=== PATIENT | female | born 1945 | race Caucasian/White ===

== ENCOUNTER 2018-01-24 15:00 | Emergency (ER) | payer MEDICARE, MEDICAID ==
[~2018-01-24] VITALS: Ht 162.6 cm; Wt 88.9 kg
[2018-01-24] MEDS ORDERED: CEPH-570 PO (16:19)
[2018-01-24] MEDS ORDERED: ACET-868 PO (16:20)
[2018-01-24] MEDS ORDERED: LOSA100T15 PO (16:20)
[2018-01-24] MEDS ORDERED: MAGN400O6 PO (16:20)
[2018-01-24] MEDS ORDERED: LEVO200T8 PO (16:20)
[2018-01-24] MEDS ORDERED: ASPI-1169 PO (16:20)
[2018-01-24] MEDS ORDERED: GUAI100S11 PO (16:20)
[2018-01-24] MEDS ORDERED: OXYC-128 PO (16:20)
[2018-01-24] MEDS ORDERED: ACET-2605 PO (16:20)
[2018-01-24] MEDS ORDERED: NA P133E RC (16:20)
[2018-01-24] MEDS ORDERED: ASCO500T9 PO (16:20)
[2018-01-24] MEDS ORDERED: DOCU-141 PO (16:20)
[2018-01-24] MEDS ORDERED: TEMA15CA PO (16:20)
[2018-01-24] MEDS ORDERED: MULT-447 PO (16:20)
--- NOTE | 2018-01-24 16:33 | NUR ---
CALLED [facility] DE [facility] [id number] TRIP#[id number]
--- NOTE | 2018-01-24 16:36 | NUR ---
VERBALIZED UNDERSTANDING OF ACI, AMBULANCE CALLED FOR TX BACK TO FACILITY
[2018-01-24 18:54] VITALS: BP 112/68
--- NOTE | 2018-01-24 18:58 | NUR ---
Patient discharged to home in stable condition. Written and verbal after care instructions given. Patient verbalizes understanding of instruction. PATIENT WAS PICKED UP BY [facility]
== END 2018-01-24 16:36 ==
LOC: ER 15:04
DX: Z48.01 Encounter for change or removal of surgical wound dressing (principal); I50.9 Heart failure, unspecified; N18.9 Chronic kidney disease, unspecified; M06.9 Rheumatoid arthritis, unspecified; Z98.890 Other specified postprocedural states; Z79.82 Long term (current) use of aspirin; Z79.899 Other long term (current) drug therapy
CPT/HCPCS: 99283; A4606; Z7502; Z7610